=== PATIENT | male | born 1970 | race American Indian/Alaskan Native ===

== ENCOUNTER 2018-08-27 07:52 | Emergency (ER) | payer OTHER ==
[2018-08-27 08:09] VITALS: BP 126/84; PULSE 86; RESP 18; TEMP 98.2; O2SAT 99; BMI 32.5
--- NOTE | 2018-08-27 08:35 | C.PDOC ---
Time Seen by Provider: 08/27/18 08:02 Chief Complaint (Nursing): Back Pain Past Medical History Vital Signs: Last Vital Signs Temp 98.2 F 08/27/18 08:04 Pulse 86 08/27/18 08:04 Resp 18 08/27/18 08:04 BP 126/84 08/27/18 08:04 Pulse Ox 99 08/27/18 08:04 Family History: States: Unknown Family Hx - Social History Hx Tobacco Use: Yes Hx Alcohol Use: No Hx Substance Use: No - Immunization History Hx Tetanus Toxoid Vaccination: No Hx Influenza Vaccination: No Hx Pneumococcal Vaccination: No ED Course And Treatment O2 Sat by Pulse Oximetry: 99 Disposition Counseled Patient/Family Regarding: Diagnosis, Need For Followup - Disposition Disposition: HOME/ ROUTINE Disposition Time: 08:32 Condition: GOOD Additional Instructions: KATHY VO, thank you for letting us take care of you today. Your provider was Tracy Overton MD and you were treated for BACK PAIN. The emergency medical care you received today was directed at your acute symptoms. If you were prescribed any medication, please fill it and take as directed. It may take several days for your symptoms to resolve. Return to the Emergency Department if your symptoms worsen, do not improve, or if you have any other problems. Please contact your doctor for a follow up appointment in 1-2 days. Bring any paperwork you were given at discharge with you along with any medications you are taking to your follow up visit. Our treatment cannot replace ongoing medical care by a primary care provider outside of the emergency department. Thank you for allowing the [facility] team to be part of your care today. If you had an X-Ray or CT scan: A Radiologist will review the ED reading if any change in treatment is needed we will contact you. If you had a blood, urine, or wound culture: It will take several days for the results, if any change in treatment is needed we will contact you. If you had an STI test: It will take 48 hours for the results. Please call after 1 week if you have not heard back. Prescriptions: Cyclobenzaprine [Cyclobenzaprine HCl] 10 mg PO TID PRN #20 tab PRN Reason: Muscle Spasm Naproxen [Naprosyn] 500 mg PO BID PRN #30 tablet PRN Reason: Pain, Moderate (4-7) Instructions: Lumbar Muscle Strain (DC) Forms: [facility] (Turkish), General Discharge Instructions - POA Present On Arrival: None - Clinical Impression Clinical Impression: Low back strain
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
== END 2018-08-27 08:43 | disposition home or self-care (01) ==
LOC: C.ER 07:52
DX: S39.012A Strain of muscle, fascia and tendon of lower back, initial encounter (principal); X58.XXXA Exposure to other specified factors, initial encounter; Z72.0 Tobacco use